=== PATIENT | male | born 1980 | race Caucasian/White ===

== ENCOUNTER 2020-11-01 11:23 | Emergency (ER) | payer OTHER ==
[2020-11-01] MEDS ORDERED: ANTI-ITCH28 GM TP (12:26)
== END 2020-11-01 12:29 | disposition home or self-care (01) ==
LOC: ER1 11:23
DX: R21 Rash and other nonspecific skin eruption (principal); Z88.0 Allergy status to penicillin
CPT/HCPCS: 99282

== ENCOUNTER → 2020-11-19 | Outpatient (CLI) | payer OTHER ==
[~2020-11-19] MED LIST: ANTI-ITCH28 GM TP
== END ==
LOC: KOH-I 12:11
DX: R60.9 Edema, unspecified (principal)
CPT/HCPCS: 73552; 73562; 73630